=== PATIENT | female | born 1990 | race Hispanic/Latino ===

== ENCOUNTER 2023-11-13 23:27 | Emergency (ER) | payer MEDICAID ==
[~2023-11-13] VITALS: Ht 157.5 cm; Wt 88.5 kg
[2023-11-14 00:45] LABS: APPEARANCE,URINE CLEAR (CLEAR); BILIRUBIN,URINE NEGATIVE (NEGATIVE); COLOR,URINE YELLOW (YELLOW); GLUCOSE, URINE (UA) NEGATIVE (NEGATIVE); KETONES,URINE NEGATIVE (NEGATIVE); LEUKOCYTE ESTERASE ,URINE 25 Leu/uL (NEGATIVE); NITRATE,URINE NEGATIVE (NEGATIVE); OCCULT BLOOD,URINE NEGATIVE (NEGATIVE); PROTEIN,URINE 20 mg/dL (NEGATIVE); UROBILINOGEN,URINE 3 mg/dL (0.2-1.0)
[2023-11-14 00:48] LABS: ADD UA MICROSCOPIC YES
[2023-11-14 00:50] LABS: CALCIUM OXALATE CRYSTALS,UR RARE /LPF (None Seen); MUCUS,URINE MOD LPF (None Seen); SQUAMOUS EPITHELIAL CELL,UR MOD /HPF (0-2)
[2023-11-14 00:54] LABS: CREATININE 0.7 mg/dL (0.5-1.0); HCG,QUALITATIVE URINE NEGATIVE (NEGATIVE); POTASSIUM 3.1 mmol/L (3.5-5.1)
[2023-11-14 01:00] LABS: ALBUMIN 3.4 g/dL (3.5-5.0); BASOPHILS # (AUTO) 0.08 K/uL (0.00-0.20); BASOPHILS % (AUTO) 0.6 % (0.0-5.0); BILIRUBIN,TOTAL 0.4 mg/dL (0.2-1.0); EOSINOPHILS # (AUTO) 0.09 K/uL (0.00-0.70); EOSINOPHILS % (AUTO) 0.7 % (0.0-8.0); IMMATURE GRANULOCYTE ABSOLUTE 0.05 K/uL (0-1); LYMPHOCYTES # (AUTO) 3.4 K/uL (1.0-4.8); LYMPHOCYTES % (AUTO) 26.5 % (21.0-51.0); MEAN CORPUSCULAR HGB CONC 33.1 g/dL (32.0-36.0); MEAN CORPUSCULAR VOLUME 93.5 fL (79-99); MONOCYTES # (AUTO) 0.9 K/uL (0.1-1.0); MONOCYTES % (AUTO) 7.2 % (3.0-13.0); NEUTROPHILS # (AUTO) 8.4 K/uL (1.8-7.7); NEUTROPHILS % (AUTO) 64.6 % (40.0-77.0); PLATELET COUNT (AUTO) 245 K/uL (130-400); RED BLOOD CELL COUNT(AUTO) 4.49 MIL/uL (4.00-5.50); RED CELL DISTRIBUTION WIDTH 12.7 % (11.0-15.5); TOTAL PROTEIN, SERUM 6.9 g/dL (6.0-8.3)
[2023-11-14 01:25] LABS: AMPHET/METH SCREEN,URINE NEGATIVE (NEGATIVE); BARBITURATE SCREEN, URINE NEGATIVE (NEGATIVE); BENZODIAZEPINES SCREEN,URINE NEGATIVE (NEGATIVE); CANNABINOID SCREEN,URINE POSITIVE (NEGATIVE); COCAINE SCREEN,URINE NEGATIVE (NEGATIVE); OPIATE SCREEN,URINE NEGATIVE (NEGATIVE); PHENCYCLIDINE SCREEN,URINE NEGATIVE (NEGATIVE)
[2023-11-14 01:37] VITALS: BP 142/83; PULSE 80; RESP 16; O2SAT 99
[2023-11-14] MEDS ORDERED: CEPH500B PO (01:43)
== END 2023-11-14 01:48 | disposition home or self-care (01) ==
LOC: EDH 23:27
DX: N39.0 Urinary tract infection, site not specified (principal); F41.9 Anxiety disorder, unspecified; J45.909 Unspecified asthma, uncomplicated; Z88.5 Allergy status to narcotic agent; Z90.49 Acquired absence of other specified parts of digestive tract
CPT/HCPCS: 36415; 80053; 80305; 81001; 81025; 83690; 85025; 87088

== ENCOUNTER 2024-03-10 16:59 | Emergency (ER) | payer MEDICAID ==
[~2024-03-10] VITALS: Ht 157.5 cm; Wt 82.6 kg
[~2024-03-10 16:59] MED LIST: AMOX500C2 PO; CEPH500B PO
[2024-03-10 18:25] LABS: BASOPHILS # (AUTO) 0.07 K/uL (0.00-0.20); BASOPHILS % (AUTO) 0.7 % (0.0-5.0); EOSINOPHILS # (AUTO) 0.07 K/uL (0.00-0.70); EOSINOPHILS % (AUTO) 0.7 % (0.0-8.0); IMMATURE GRANULOCYTE ABSOLUTE 0.05 K/uL (0-1); LYMPHOCYTES # (AUTO) 2.8 K/uL (1.0-4.8); LYMPHOCYTES % (AUTO) 27.2 % (21.0-51.0); MEAN CORPUSCULAR HGB CONC 33.3 g/dL (32.0-36.0); MEAN CORPUSCULAR VOLUME 93.1 fL (79-99); MONOCYTES # (AUTO) 0.9 K/uL (0.1-1.0); MONOCYTES % (AUTO) 8.2 % (3.0-13.0); NEUTROPHILS # (AUTO) 6.5 K/uL (1.8-7.7); NEUTROPHILS % (AUTO) 62.7 % (40.0-77.0); PLATELET COUNT (AUTO) 252 K/uL (130-400); RED BLOOD CELL COUNT(AUTO) 4.62 MIL/uL (4.00-5.50); RED CELL DISTRIBUTION WIDTH 13.2 % (11.0-15.5); WHITE BLOOD COUNT (AUTO) 10.3 K/uL (4.8-10.8)
[2024-03-10 18:32] LABS: CREATININE 0.6 mg/dL (0.5-1.0); POTASSIUM 3.5 mmol/L (3.5-5.1)
[2024-03-10 18:39] LABS: INR 0.95 (0.85-1.15); PROTHROMBIN TIME 10.3 SEC (9.6-11.6)
[2024-03-10 18:40] LABS: PARTIAL THROMBOPLASTIN TIME 25.9 SEC (26.3-35.5)
[2024-03-10] MEDS: IpraTROPium/alBUTERol SULFATE 3 ML SOLUTION IH ONE (18:44)
[2024-03-10 18:45] VITALS: PULSE 67; RESP 18
[2024-03-10 18:46] LABS: ADD UA MICROSCOPIC YES; APPEARANCE,URINE CLOUDY (CLEAR); BILIRUBIN,URINE NEGATIVE (NEGATIVE); COLOR,URINE COLORLESS (YELLOW); GLUCOSE, URINE (UA) NEGATIVE (NEGATIVE); KETONES,URINE NEGATIVE (NEGATIVE); LEUKOCYTE ESTERASE ,URINE NEGATIVE Leu/uL (NEGATIVE); NITRATE,URINE NEGATIVE (NEGATIVE); OCCULT BLOOD,URINE NEGATIVE (NEGATIVE); PROTEIN,URINE NEGATIVE (NEGATIVE); UROBILINOGEN,URINE 0.2 mg/dL (0.2-1.0)
[2024-03-10 18:56] LABS: BACTERIA,URINE RARE /HPF (None Seen); SQUAMOUS EPITHELIAL CELL,UR FEW /HPF (0-2); WBC,URINE 0-1 /HPF (0-1)
[2024-03-10] MEDS: 0.9% NACL 500ML IV.SOLN 500 ML IV ONE (20:50)
[2024-03-10 20:56] VITALS: BP 109/65; PULSE 60; RESP 18; TEMP 98; O2SAT 98
== END 2024-03-10 20:59 | disposition home or self-care (01) ==
LOC: EDH 16:59
DX: R53.1 Weakness (principal); J44.1 Chronic obstructive pulmonary disease with (acute) exacerbation; K62.5 Hemorrhage of anus and rectum; R51.9 Headache, unspecified; H53.8 Other visual disturbances; F41.9 Anxiety disorder, unspecified; F31.9 Bipolar disorder, unspecified; F20.9 Schizophrenia, unspecified; Z88.5 Allergy status to narcotic agent; Z79.2 Long term (current) use of antibiotics; Z90.49 Acquired absence of other specified parts of digestive tract
CPT/HCPCS: 99285; 71045; 84484; 80048; 84703; 85025; 85610; 85730; 81001; 36415; 94640; J7040

== ENCOUNTER 2024-05-06 13:37 | Emergency (ER) | payer MEDICAID ==
[~2024-05-06] VITALS: Ht 157.5 cm; Wt 77.1 kg
[2024-05-06 15:39] VITALS: BP 120/70; PULSE 75; RESP 16; TEMP 98.1; O2SAT 99
[2024-05-06] MEDS: ondanSETRON ODT 4MG TAB SL ONE (15:44)
[2024-05-06 15:59] LABS: BASOPHILS # (AUTO) 0.06 K/uL (0.00-0.20); BASOPHILS % (AUTO) 0.4 % (0.0-5.0); HEMATOCRIT 45.9 % (36-48); IMMATURE GRANULOCYTE ABSOLUTE 0.06 K/uL (0-1); LYMPHOCYTES # (AUTO) 1.5 K/uL (1.0-4.8); LYMPHOCYTES % (AUTO) 11.1 % (21.0-51.0); MEAN CORPUSCULAR HEMOGLOBIN 30.3 pg (27.0-33.0); MEAN CORPUSCULAR HGB CONC 33.6 g/dL (32.0-36.0); MEAN CORPUSCULAR VOLUME 90.4 fL (79-99); MONOCYTES # (AUTO) 0.8 K/uL (0.1-1.0); MONOCYTES % (AUTO) 5.4 % (3.0-13.0); NEUTROPHILS # (AUTO) 11.5 K/uL (1.8-7.7); NEUTROPHILS % (AUTO) 82.7 % (40.0-77.0); PLATELET COUNT (AUTO) 273 K/uL (130-400); RED BLOOD CELL COUNT(AUTO) 5.08 MIL/uL (4.00-5.50); RED CELL DISTRIBUTION WIDTH 12.6 % (11.0-15.5); WHITE BLOOD COUNT (AUTO) 13.9 K/uL (4.8-10.8)
[2024-05-06 16:01] LABS: APPEARANCE,URINE CLOUDY (CLEAR); BILIRUBIN,URINE 0.5 mg/dL (NEGATIVE); COLOR,URINE YELLOW (YELLOW); GLUCOSE, URINE (UA) NEGATIVE (NEGATIVE); KETONES,URINE >=80 mg/dL (NEGATIVE); LEUKOCYTE ESTERASE ,URINE 75 Leu/uL (NEGATIVE); NITRATE,URINE NEGATIVE (NEGATIVE); OCCULT BLOOD,URINE NEGATIVE (NEGATIVE); PROTEIN,URINE 50 mg/dL (NEGATIVE); UROBILINOGEN,URINE 3 mg/dL (0.2-1.0)
[2024-05-06 16:06] LABS: HCG,QUALITATIVE URINE NEGATIVE (NEGATIVE)
[2024-05-06 16:19] LABS: CREATININE 0.7 mg/dL (0.5-1.0); POTASSIUM 3.1 mmol/L (3.5-5.1)
[2024-05-06 16:29] LABS: ADD UA MICROSCOPIC YES
[2024-05-06 16:35] LABS: MUCUS,URINE MANY LPF (None Seen); SQUAMOUS EPITHELIAL CELL,UR FEW /HPF (0-2); UNCLASSIFIED CRYSTAL 2 /HPF (None Seen)
[2024-05-06] MEDS ORDERED: ONDA-243 PO (16:40)
[2024-05-06] MEDS ORDERED: OMEP40CA21 PO (16:40)
[2024-05-06] MEDS: PoTASSium BIcarbonate/CIT AC 25 MEQ TABLET.EFF PO SCH (16:41)
== END 2024-05-06 16:52 | disposition home or self-care (01) ==
LOC: EDH 13:37
DX: E87.6 Hypokalemia (principal); R11.2 Nausea with vomiting, unspecified; F41.9 Anxiety disorder, unspecified; F20.9 Schizophrenia, unspecified; J44.9 Chronic obstructive pulmonary disease, unspecified; Z79.899 Other long term (current) drug therapy; Z88.5 Allergy status to narcotic agent; Z90.49 Acquired absence of other specified parts of digestive tract; Z98.890 Other specified postprocedural states
CPT/HCPCS: 36415; 80048; 81001; 81025; 85025; 87086

== ENCOUNTER 2024-06-11 19:31 | Emergency (ER) | payer MEDICAID ==
[~2024-06-11] VITALS: Ht 157.5 cm; Wt 75.7 kg
[~2024-06-11 19:31] MED LIST changes: +OMEP40CA21 PO; +ONDA-243 PO
--- NOTE | 2024-06-11 20:13 | HMCIMG ---
KNEE 4+VWS LT CLINICAL HISTORY: FALL COMPARISON: None TECHNIQUE: AP lateral and oblique images were obtained. FINDINGS: No obvious fracture or dislocation. No joint effusion. The soft tissues appear unremarkable. No radiopaque foreign bodies. IMPRESSION: No acute findings.
[2024-06-11] MEDS ORDERED: KETO10TA2 PO (20:29)
--- NOTE | 2024-06-11 20:29 | ERN ---
General Chief Complaint: Mechanical Fall Stated Complaint: FALL Time Seen by MD: 19:36 Time Seen by Midlevel: 19:36 Source: patient History of Present Illness Initial Comments Patient is a 34-year-old female presenting to the emergency department with left knee pain. Patient reports sustaining a mechanical ground level fall prior to arrival. She reports landing on her left knee. Patient was able to ambulate after the fall but is having pain to the area so she decided to report to the ER for further evaluation. No other injuries reported. Denies any loss of consciousness or head injury. Denies being on any blood thinners. Allergies: Coded Allergies: morphine (Unverified Allergy, Unknown, 11/13/23) Home Meds Active Scripts Ketorolac Tromethamine (Ketorolac Tromethamine) 10 Mg Tablet, 1 TAB PO TID for pain for 5 Days, #15 TAB 0 Refills Prov:DAVID ROCKWELL 06/11/24 Omeprazole (Omeprazole) 40 Mg Capsule.dr, 1 CAP PO DAILY for 30 Days, #30 CAP 0 Refills Prov:LEONID HERNDON NP 05/06/24 Ondansetron (Ondansetron Odt) 4 Mg Tab.rapdis, 1 TAB PO Q6HPRN PRN for nausea/vomiting for 4 Days, #16 TAB 0 Refills Prov:LEONID HERNDON NP 05/06/24 Amoxicillin (Amoxicillin) 500 Mg Capsule, 500 MG PO TID for 7 Days, #21 CAP Prov:REKHA ROWELL MD 12/31/23 Cephalexin Monohydrate (Keflex) 500 Mg Cap, 500 MG PO QID for 7 Days, #28 CAP Prov:REKHA ROWELL MD 11/14/23 Past Medical History Past Medical History: Anxiety, Asthma, Bipolar, COPD, Depression, Seizure, Schizophrenia Medical History Other: R FT FRACTURE Past Surgical History: Appendectomy Surgical History Other: EAR/NOSE SURGERY Female( History) History: Not Applicable ROS Dictation CONSTITUTIONAL: Negative except for HPI HEAD/FACE: Negative except for HPI EENT: Negative except for HPI RESPIRATORY: Negative except for HPI GASTROINTESTINAL/ABDOMINAL: Negative except for HPI GENITOURINARY: Negative except for HPI MUSCULOSKELETAL: Negative except for HPI INTEGUMENTARY: Negative except for HPI NEUROLOGICAL/PSYCH: Negative except for HPI HEMATOLOGIC/LYMPHATIC: Negative except for HPI All Systems Negative, Except as noted above. 13 point review of systems assessed and all negative except for above. Physical Exam Physical Exam Dictation Vital Signs reviewed General Appearance: Alert, oriented x 3, no acute distress, well developed, n ourished. Head and Face: non-traumatic. Eyes: PERRL, pink conjunctivas, eyelid no trauma, anterior chamber with arcus senilis. Ears: Pinnas intact and no signs of trauma or erythema ear canals clear and no discharge TM no erythema Nose: No discharge, no bleeding. Oropharynx: Mouth normal, tongue pink, pharynx clear,no erythema, tonsils no exudates, no abscesses noted, mucous membrane moist Neck: Supple, non-tender, no thyromegaly, no masses, no JVD, no bruits Breast:Deferred Chest:No tenderness, no crepitus, no paradoxical movement, no retractions Lungs:Clear, well-ventilated, symmetric, no rales, no wheezing, no rhonchi, no stridor, good breath sounds bilaterally Heart: Regular rate, regular rhythm, no murmur, no gallops Vascular: no peripheral edema, Abdomen: Soft, positive bowel sounds, nondistended, no guarding, nontender, no rebound, no masses no hepatomegaly, no splenomegaly, no Hutton's sign, no hernias. Rectal: Deferred Genital: Deferred Neurological: Normal speech, motor function intact, sensory function intact Musculoskeletal: Neck nontender, full range of motion, back nontender, full range of motion, Extremities: nontender, full range of motion Skin: Color pink, dry, no turgor, no rash, no lacerations, no abrasions, no contusions. Lymphatic: Deferred MDM MDM: Patient is a 34-year-old female presenting to the emergency department with left knee pain. Patient reports sustaining a mechanical ground level fall prior to arrival. She reports landing on her left knee. Patient was able to ambulate after the fall but is having pain to the area so she decided to report to the ER for further evaluation. No other injuries reported. Denies any loss of consciousness or head injury. Denies being on any blood thinners. On physical examination patient has some mild tenderness to the lateral aspect of the left knee. There is no soft tissue swelling, range of motion is intact. Distal pulses are intact. There is 2+ DP, PT pulses. There is normal capillary refill. Sensation is intact to left lower extremity. An x-ray of the left knee was obtained which did not show any acute fracture, dislocation, or joint effusion. Patient was given pain medication in the emergency department and will be discharged home with supportive management. A knee immobilizer was provided and she was advised to follow up with your primary care doctor in 2-3 days for repeat evaluation. Return precautions discussed. Patient is agreeable with this plan and all questions have been answered. Differential diagnosis: Fracture, dislocation, strain, sprain, internal knee injury There are no social concerns with this patient. Prescription drug management Prescriptions will include: Toradol Medical management and examination interpretation discussions were had by me with other qualified healthcare professionals as indicated for the patient's care. ED Course Orders Procedure Category Date Status Time Knee 4+Vws Lt RAD 06/11/24 Resulted 19:38 Ketorolac PHA 06/11/24 Complete Tromethamine 15mg/Ml 20:30 Place Knee Imobilizer CPOE 06/11/24 Transmitted To: (Er) 20:24 Current Medications Medications (Trade) Dose Ordered Sig/Macy Route PRN Reason Start Time Stop Time Status Last Admin Dose Admin Ketorolac Tromethamine (toRADol) 15 mg ONCE ONCE IM 06/11/24 20:30 06/11/24 20:31 DC 06/11/24 20:36 Vital Signs Date Time Temp Pulse Resp B/P (MAP) Pulse Ox O2 Delivery O2 Flow Rate FiO2 06/11/24 20:47 98.8 88 20 133/67 98 Room Air* 0 21 06/11/24 19:52 98.8 84 20 132/65 98 Room Air* 0 21 06/11/24 19:32 97.7 86 20 118/49 97 Room Air [place] [id number] [address] IMAGING REPORT Signed PATIENT: MARE OSUNA MR#: [id number] : 1990 SEX: F AGE: 34 LOCATION: [facility] ORDER 38 STATUS: REG ER REPORT#: [id number] SERVICE 37 REASON: FALL ORDERING PHYSICIAN: DIAMOND STREETER MD PROCEDURE: KNEE 4V LT - KNEE 4+VWS LT KNEE 4+VWS LT CLINICAL HISTORY: FALL COMPARISON: None TECHNIQUE: AP lateral and oblique images were obtained. FINDINGS: No obvious fracture or dislocation. No joint effusion. The soft tissues appear unremarkable. No radiopaque foreign bodies. IMPRESSION: No acute findings. DICTATED BY: CANDY TADEO DO DATE: 06/11/242010 ELECTRONICALLY SIGNED BY: CANDY TADEO DO DATE: 06/11/242012 DX & DISP Disposition: Discharge Departure Impression: Primary Impression: Fall Additional Impression: Left knee sprain Condition: Stable Scripts Ketorolac Tromethamine (Ketorolac Tromethamine) 10 Mg Tablet 1 TAB PO TID for pain for 5 Days, #15 TAB 0 Refills Prov: DAVID ROCKWELL 06/11/24 Referrals: MILAGROS MONTES DO (PCP) I have reviewed the case, and I agree with, Diagnosis and Plan I performed the substantive portion of the visit. I have reviewed and personally made and approve the management plan that is documented in the note by myself or the MADAI. I acknowledge for responsibility for the patient's manage ment plan. DAVID ROCKWELL Jun 11, 2024 20:29
[2024-06-11] MEDS: ketOROlac 15MG/ML VIAL (15MG/ML) IM ONE (20:36)
--- NOTE | 2024-06-11 20:42 | NUR ---
EDUCATION ON CRUTCHES PROVIDED FOR PATIENT ALONG WITH TEACHING FOR USE
[2024-06-11 20:47] VITALS: BP 133/67; PULSE 88; RESP 20; TEMP 98.8; O2SAT 98
--- NOTE | 2024-06-11 20:47 | NUR ---
KNEE IMMOBILIZER APPLIED TO LEFT KNEE PER ORDER.
== END 2024-06-11 20:48 | disposition home or self-care (01) ==
LOC: EDH 19:31
DX: S83.8X2A Sprain of other specified parts of left knee, initial encounter (principal); Z79.899 Other long term (current) drug therapy; Z88.5 Allergy status to narcotic agent; Z90.49 Acquired absence of other specified parts of digestive tract; W18.39XA Other fall on same level, initial encounter; Y93.89 Activity, other specified; Y92.89 Other specified places as the place of occurrence of the external cause; Y99.8 Other external cause status
CPT/HCPCS: 99284; 29505; 73564; 96372; J1885

== ENCOUNTER 2024-08-31 15:06 | Emergency (ER) | payer MEDICAID ==
[~2024-08-31] VITALS: Ht 157.5 cm; Wt 72.6 kg
[~2024-08-31 15:06] MED LIST changes: +KETO10TA2 PO
[2024-08-31 17:01] LABS: BASOPHILS # (AUTO) 0.07 K/uL (0.00-0.20); BASOPHILS % (AUTO) 0.4 % (0.0-5.0); HEMATOCRIT 44.9 % (36-48); LYMPHOCYTES # (AUTO) 1.2 K/uL (1.0-4.8); MEAN CORPUSCULAR HEMOGLOBIN 30.8 pg (27.0-33.0); MEAN CORPUSCULAR HGB CONC 33.6 g/dL (32.0-36.0); MEAN CORPUSCULAR VOLUME 91.6 fL (79-99); MONOCYTES # (AUTO) 0.5 K/uL (0.1-1.0); MONOCYTES % (AUTO) 2.7 % (3.0-13.0); NEUTROPHILS # (AUTO) 15.1 K/uL (1.8-7.7); NEUTROPHILS % (AUTO) 89.3 % (40.0-77.0); PLATELET COUNT (AUTO) 309 K/uL (130-400); WHITE BLOOD COUNT (AUTO) 16.9 K/uL (4.8-10.8)
[2024-08-31 17:17] LABS: CREATININE 0.7 mg/dL (0.5-1.0); POTASSIUM 3.2 mmol/L (3.5-5.1)
[2024-08-31 17:26] LABS: ALBUMIN 4.2 g/dL (3.5-5.0); BILIRUBIN,DIRECT 0.1 mg/dL (0.0-0.3); BILIRUBIN,TOTAL 0.4 mg/dL (0.2-1.0); TOTAL PROTEIN, SERUM 8.2 g/dL (6.0-8.3)
[2024-08-31 17:33] LABS: COVID19 (SARS ANTIGEN RAPID) PRESUMPTIVE NEGATIVE (NEGATIVE); INFLUENZA TYPE A Negative For Type A (NEGATIVE); INFLUENZA TYPE B Negative For Type B (NEGATIVE)
--- NOTE | 2024-08-31 18:13 | HMCIMG ---
PORTABLE CHEST RADIOGRAPH INDICATION: cough, sob COMPARISON: 03/10/2024 FINDINGS: Heart size is normal. The pulmonary vascularity and wally appear normal. No abnormal pulmonary parenchymal opacity or consolidation identified. No significant pleural effusion noted. No pneumothorax detected. IMPRESSION: No radiographic evidence for any acute cardiopulmonary process.
--- NOTE | 2024-08-31 19:28 | ERN ---
General Chief Complaint: Abdominal Pain Stated Complaint: ABD PAIN Time Seen by MD: 15:31 Time Seen by Midlevel: 15:31 Source: patient History of Present Illness Initial Comments 34-year-old female who presents to the emergency department due to abdominal pain onset four days. Patient reports back pain, vomiting, cough, difficulty breathing but denies any chest pain, diarrhea, constipation or further associated symptoms. PMHx anxiety, asthma, bipolar, COPD, depression, seizures, schizophrenia Allergies: Coded Allergies: morphine (Unverified Allergy, Unknown, 11/13/23) Home Meds Active Scripts Cephalexin (Cephalexin) 500 Mg Tablet, 500 MG PO BID for 7 Days, #14 TAB Prov:BRYCE HUERTA 08/31/24 Ketorolac Tromethamine (Ketorolac Tromethamine) 10 Mg Tablet, 1 TAB PO TID for pain for 5 Days, #15 TAB 0 Refills Prov:DAVID ROCKWELL 06/11/24 Omeprazole (Omeprazole) 40 Mg Capsule.dr, 1 CAP PO DAILY for 30 Days, #30 CAP 0 Refills Prov:LEONID HERNDON NP 05/06/24 Ondansetron (Ondansetron Odt) 4 Mg Tab.rapdis, 1 TAB PO Q6HPRN PRN for nausea/vomiting for 4 Days, #16 TAB 0 Refills Prov:LEONID HERNDON NP 05/06/24 Amoxicillin (Amoxicillin) 500 Mg Capsule, 500 MG PO TID for 7 Days, #21 CAP Prov:REKHA ROWLEL MD 12/31/23 Cephalexin Monohydrate (Keflex) 500 Mg Cap, 500 MG PO QID for 7 Days, #28 CAP Prov:REKHA ROWELL MD 11/14/23 Past Medical History Past Medical History: Anxiety, Asthma, Bipolar, COPD, Depression, Seizure, Schizophrenia Medical History Other: R FT FRACTURE Past Surgical History: Appendectomy Surgical History Other: EAR/NOSE SURGERY Female( History) History: Not Applicable ROS Dictation Constitutional: Negative for fever,chills, and weight loss Eyes: Negative for injury, pain,redness, and discharge ENT: Negative for injury,pain or swelling Cardiovascular: Negative for chest pain, palpitations, and edema Respiratory: Negative for shortness of breath, cough, and wheezing, Abdomen/GI: Positive for abdominal pain, nausea, vomiting Negative for diarrhea, and constipation Back: Positive for back pain Negative for injury and pain : Negative for painful urination, bleeding or discharge MS/Extremity: Negative for injury and deformity Skin: Negative for rash, and discoloration Neuro: Negative for headache, weakness, numbness, tingling, and seizure Psych: Negative for suicide ideation, homicidal ideation, and hallucinations Physical Exam Physical Exam Dictation General: awake, alert, no acute distress Head/Face: Normocephalic, atraumatic Eyes: PERRL, EOMI, normal conjunctiva ENT: oral cavity clear, oral mucosa moist Neck: Supple, normal range of motion Cardiovascular: RRR, normal S1/S2 Respiratory: CTAB, no respiratory distress, no rales or wheezes Abdomen: Soft, non-tender, non-distended, normal bowel sounds, no guarding or rebound. Skin: Warm, dry, normal turgor, no rash MS/Extremity: Pulses equal, no cyanosis, neurovascular intact, FROM Neuro: COAx4, GCS 15, strength 5/5, CN 2-12 intact, normal cerebellar exam, normal gait Psych: Normal behavior, mood, and affect normal Results Laboratory and Microbiology Lab and Micro Result Laboratory Tests Test 08/31/24 16:54 08/31/24 17:09 08/31/24 19:25 White Blood Count 16.9 K/uL (4.8-10.8) H Red Blood Count 4.90 MIL/uL (4.00-5.50) Hemoglobin 15.1 g/dL (12.0-16.0) Hematocrit 44.9 % (36-48) Mean Corpuscular Volume 91.6 fL (79-99) Mean Corpuscular Hemoglobin 30.8 pg (27.0-33.0) Mean Corpuscular Hemoglobin Concent 33.6 g/dL (32.0-36.0) Red Cell Distribution Width 13.0 % (11.0-15.5) Platelet Count 309 K/uL (130-400) Mean Platelet Volume 10.6 fL (7.5-10.5) H Immature Granulocyte % (Auto) 0.6 % (0-1) Neutrophils (%) (Auto) 89.3 % (40.0-77.0) H Lymphocytes (%) (Auto) 7.0 % (21.0-51.0) L Monocytes (%) (Auto) 2.7 % (3.0-13.0) L Eosinophils (%) (Auto) 0.0 % (0.0-8.0) Basophils (%) (Auto) 0.4 % (0.0-5.0) Neutrophils # (Auto) 15.1 K/uL (1.8-7.7) H Lymphocytes # (Auto) 1.2 K/uL (1.0-4.8) Monocytes # (Auto) 0.5 K/uL (0.1-1.0) Eosinophils # (Auto) 0.00 K/uL (0.00-0.70) Basophils # (Auto) 0.07 K/uL (0.00-0.20) Absolute Immature Granulocyte (auto 0.10 K/uL (0-1) Nucleated Red Blood Cells 0.0 % (0.0-0.19) White Cell Morphology Comment See comments Sodium Level 142 mmol/L (136-145) Potassium Level 3.2 mmol/L (3.5-5.1) L Chloride Level 102 mmol/L (101-111) Carbon Dioxide Level 34 mmol/L (21-32) H Blood Urea Nitrogen 7 mg/dL (7-18) Creatinine 0.7 mg/dL (0.5-1.0) Glomerular Filtration Rate Calc 115 mL/min (>90) Random Glucose 142 mg/dL (70-105) H Total Calcium 9.5 mg/dL (8.5-10.1) Total Bilirubin 0.4 mg/dL (0.2-1.0) Direct Bilirubin 0.1 mg/dL (0.0-0.3) Aspartate Amino Transf (AST/SGOT) 24 U/L (10-37) Alanine Aminotransferase (ALT/SGPT) 35 U/L (12-78) Alkaline Phosphatase 117 U/L (50-136) Total Protein 8.2 g/dL (6.0-8.3) Albumin 4.2 g/dL (3.5-5.0) Lipase 25 U/L (16-77) Influenza Type A Antigen Negative For Type A Influenza Type B Antigen Negative For Type B SARS-CoV-2 Antigen (Rapid) PRESUMPTIVE NEGATIVE Urine Color YELLOW (YELLOW) Urine Appearance TURBID (CLEAR) Urine pH 6.0 (5.0-8.0) Urine Specific [place] 1.026 (1.001-1.031) Urine Protein 100 mg/dL (NEGATIVE) H Urine Glucose (UA) 30 mg/dL (NEGATIVE) H Urine Ketones 100 mg/dL (NEGATIVE) H Urine Occult Blood NEGATIVE (NEGATIVE) Urine Nitrate NEGATIVE (NEGATIVE) Urine Bilirubin NEGATIVE mg/dL (NEGATIVE) Urine Urobilinogen 3 mg/dL (0.2-1.0) H Urine Leukocyte Esterase 75 Alexander/uL (NEGATIVE) H Urine RBC 6-10 /HPF (0-1) H Urine WBC 11-25 /HPF (0-1) H Urine Squamous Epithelial Cells RARE /HPF (0-2) Urine Other Crystals (Auto) 59 /HPF (None Seen) Urine Bacteria RARE /HPF (None Seen) Urine HCG, Qualitative NEGATIVE (NEGATIVE) Labs Reviewed?: Yes EKG/XRAY/US/CT/MRI X-RAY Comment REASON: cough, sob ORDERING PHYSICIAN: BRYCE HUERTA PROCEDURE: CXR1VW - CHEST 1VW PORTABLE CHEST RADIOGRAPH INDICATION: cough, sob COMPARISON: 03/10/2024 FINDINGS: Heart size is normal. The pulmonary vascularity and wally appear normal. No abnormal pulmonary parenchymal opacity or consolidation identified. No significant pleural effusion noted. No pneumothorax detected. IMPRESSION: No radiographic evidence for any acute cardiopulmonary process. DICTATED BY: DOMITILA BEAR MD DATE: 08/31/241810 MDM MDM: Differential diagnosis: Viral illness, abdominal pain, UTI, gastroenteritis Rationale: 34-year-old female who presents to the emergency department due to abdominal pain onset four days. Patient reports back pain, vomiting, cough, difficulty breathing but denies any chest pain, diarrhea, constipation or further associated symptoms. PMHx anxiety, asthma, bipolar, COPD, depression, seizures, schizophrenia Per physical examination patient appears to be in no acute distress, nonlabored breathing, abdomen is soft nontender, no CVA tenderness. Labs obtained indicate WBC elevated at 16.9, hypokalemia at 3.2. UA indicates a urinary tract infection. Influenza and SARs negative. Chest x-ray indicates no acute abnormalities. ED course delayed due to patient unable to provide urine. Per PECARN criteria, physical examination, and vitals no indication for D-dimer or further evaluation. Patient received Zofran, IV fluids, Reglan, K-Lyte, Rocephin, ketorolac in the ED. patient prescribed antibiotics for outpatient treatment. Educated on findings and diagnosis. Advised to follow up with PCP. Return to the emergency department if any worsening symptoms. Patient verbalized understanding. Patient stable for discharge. There are no social concerns with this patient. I independently interpreted the test that were performed, results were reviewed by me and considered findings on radiology if ordered. Medical management and examination interpretation discussions were had by me with other qualified healthcare professionals as indicated for the patient's care. ED Course Orders Procedure Category Date Status Time Cbc With Differential LAB 08/31/24 Complete 16:37 Basic Metabolic Panel LAB 08/31/24 Complete 16:37 Hepatic Function Panel LAB 08/31/24 Complete 16:37 Lipase LAB 08/31/24 Complete 16:37 Urinalysis LAB 08/31/24 Complete W/Microscopic 16:37 ,Urine Test LAB 08/31/24 Complete 16:37 Chest 1vw RAD 08/31/24 Resulted 17:01 Influenza Type A & B, LAB 08/31/24 Complete Rapid 17:01 Covid19 (Sars Antigen LAB 08/31/24 Complete Rapid) 17:01 Ondansetron 4mg Inj PHA 08/31/24 Complete (Zofran 4mg Inj) 19:30 Ketorolac PHA 08/31/24 Complete Tromethamine 15mg/Ml 19:30 Potassium Bicarb/Cit PHA 08/31/24 Complete Ac 25meq (K-Lyte Ta 19:30 Culture Urine MASOUD 08/31/24 In Process 19:40 Ceftriaxone 1g Vial PHA 08/31/24 Complete (Rocephine 1g Inj) 20:00 Metoclopramide 10 PHA 08/31/24 Complete Mg/2 Ml Vial (Reglan 1 20:00 0.9%Nacl 1000ml (Ns PHA 08/31/24 Complete 1000ml) 20:00 Current Medications Medications (Trade) Dose Ordered Sig/Macy Route PRN Reason Start Time Stop Time Status Last Admin Dose Admin Ceftriaxone Sodium (ROCEphine 1G INJ) 1 gm ONCE ONCE IVPB 08/31/24 20:00 08/31/24 20:01 DC 08/31/24 20:09 Ketorolac Tromethamine (toRADol) 15 mg ONCE ONCE IV 08/31/24 19:30 08/31/24 19:31 DC 08/31/24 19:30 Metoclopramide HCl (regLAN 10MG IV) 10 mg ONCE ONCE IVP 08/31/24 20:00 08/31/24 20:01 DC 08/31/24 20:08 Ondansetron HCl (zoFRAN 4MG INJ) 4 mg ONCE ONCE IVP 08/31/24 19:30 08/31/24 19:31 DC 08/31/24 19:29 Potassium Bicarbonate (K-Lyte Tablet Eff 25 Meq Tablet.eff) 25 meq ONCE ONCE PO 08/31/24 19:30 08/31/24 19:31 DC 08/31/24 19:29 Sodium Chloride 1,000 ml @ 0 mls/hr ONCE ONCE IV 08/31/24 20:00 08/31/24 20:01 DC 08/31/24 20:04 Vital Signs Date Time Temp Pulse Resp B/P (MAP) Pulse Ox O2 Delivery O2 Flow Rate FiO2 08/31/24 20:34 98.8 75 16 125/70 98 Room Air* 0 21 08/31/24 16:55 98.2 76 16 125/72 98 Room Air* 0 21 08/31/24 15:36 98.8 80 20 129/70 96 Room Air DX & DISP Disposition: Discharge Departure Impression: Primary Impression: UTI (urinary tract infection) Condition: Stable Scripts Cephalexin (Cephalexin) 500 Mg Tablet 500 MG PO BID for 7 Days, #14 TAB Prov: BRYCE HUERTA 08/31/24 Additional Instructions: Discharge home. Rest. Follow up with primary care DrFeliz in 24 hours. Return to the ER for any acute changes or worsening symptoms. If any medications were prescribed take as directed. Okay to continue home medications unless otherwise discussed during your visit in the emergency room today. Patient was also advised to follow-up with primary care physician in 1 to 2 days for continued monitoring. Referrals: NONE (PCP) I performed the substantive portion of the visit. I have reviewed and personally made and approve the management plan that is documented in the notes by myself or the MADAI. I acknowledge full responsibility for the patient's management plan. BRYCE HUERTA Aug 31, 2024 19:28
[2024-08-31] MEDS: PoTASSium BIcarbonate/CIT AC 25 MEQ TABLET.EFF PO ONE (19:29)
[2024-08-31] MEDS: ondanSETRON 4MG INJ IVP ONE (19:29)
[2024-08-31] MEDS: ketOROlac 15MG/ML VIAL (15MG/ML) IV ONE (19:30)
[2024-08-31 19:35] LABS: APPEARANCE,URINE TURBID (CLEAR); BILIRUBIN,URINE NEGATIVE (NEGATIVE); COLOR,URINE YELLOW (YELLOW); GLUCOSE, URINE (UA) 30 mg/dL (NEGATIVE); KETONES,URINE 100 mg/dL (NEGATIVE); LEUKOCYTE ESTERASE ,URINE 75 Leu/uL (NEGATIVE); NITRATE,URINE NEGATIVE (NEGATIVE); OCCULT BLOOD,URINE NEGATIVE (NEGATIVE); PROTEIN,URINE 100 mg/dL (NEGATIVE); UROBILINOGEN,URINE 3 mg/dL (0.2-1.0)
[2024-08-31 19:41] LABS: HCG,QUALITATIVE URINE NEGATIVE (NEGATIVE)
[2024-08-31 19:44] LABS: BACTERIA,URINE RARE /HPF (None Seen); MUCUS,URINE MANY LPF (None Seen); SQUAMOUS EPITHELIAL CELL,UR RARE /HPF (0-2); UNCLASSIFIED CRYSTAL 59 /HPF (None Seen)
[2024-08-31] MEDS: 0.9%NACL 1000ML 1,000 ML IV ONE (20:04)
[2024-08-31] MEDS: metoCLOPRAmide 10 MG/2 ML VIAL IVP ONE (20:08)
[2024-08-31] MEDS: cefTRIAXone 1G VIAL IVPB ONE (20:09)
[2024-08-31] MEDS ORDERED: CEPH500T PO (20:33)
[2024-08-31 20:34] VITALS: BP 125/70; PULSE 75; RESP 16; TEMP 98.8; O2SAT 98
== END 2024-08-31 20:43 | disposition home or self-care (01) ==
LOC: EDH 15:06
DX: N39.0 Urinary tract infection, site not specified (principal); F20.9 Schizophrenia, unspecified; F31.9 Bipolar disorder, unspecified; J44.89 Other specified chronic obstructive pulmonary disease; Z79.899 Other long term (current) drug therapy; Z88.5 Allergy status to narcotic agent; Z90.49 Acquired absence of other specified parts of digestive tract; Z20.822 Contact with and (suspected) exposure to COVID-19
CPT/HCPCS: 99284; 96365; 96375; 71045; 87426; 80076; 80048; 83690; 85025; 87086; 87804 ×2; 81001; 81025; 36415; J1885; J7030; J0696; J2405; J2765

== ENCOUNTER 2025-04-17 17:11 | Emergency (ER) | payer MEDICAID ==
[~2025-04-17] VITALS: Ht 157.5 cm; Wt 83.9 kg
[~2025-04-17 17:11] MED LIST changes: +CEPH500T PO
[2025-04-17 18:11] LABS: APPEARANCE,URINE CLEAR (CLEAR); GLUCOSE, URINE (UA) NEGATIVE (NEGATIVE); LEUKOCYTE ESTERASE ,URINE NEGATIVE Leu/uL (NEGATIVE); NITRATE,URINE NEGATIVE (NEGATIVE); OCCULT BLOOD,URINE NEGATIVE (NEGATIVE)
[2025-04-17 18:17] LABS: AMPHET/METH SCREEN,URINE NEGATIVE (NEGATIVE); BARBITURATE SCREEN, URINE NEGATIVE (NEGATIVE); CANNABINOID SCREEN,URINE POSITIVE (NEGATIVE); COCAINE SCREEN,URINE NEGATIVE (NEGATIVE)
[2025-04-17 18:31] LABS: ADD UA MICROSCOPIC NO
[2025-04-17 18:41] LABS: IMMATURE GRANULOCYTE ABSOLUTE 0.07 K/uL (0-1); NUCLEATED RED BLOOD CELLS 0.0 % (0.0-0.19); PLATELET COUNT (AUTO) 284 K/uL (130-400); RED BLOOD CELL COUNT(AUTO) 4.99 MIL/uL (4.00-5.50); RED CELL DISTRIBUTION WIDTH 12.7 % (11.0-15.5); WHITE BLOOD COUNT (AUTO) 11.7 K/uL (4.8-10.8)
[2025-04-17 18:49] LABS: CREATININE 0.5 mg/dL (0.5-1.0); GLOMERULAR FILTR. RATE CALC 125.0 mL/min (>90); GLUCOSE,RANDOM 69.0 mg/dL (70-105); SODIUM SERUM 143.0 mmol/L (136-145); UREA NITROGEN, BLOOD 9.0 mg/dL (7-18)
[2025-04-17 18:53] VITALS: BP 111/59; PULSE 67; RESP 16; TEMP 98.1; O2SAT 98
[2025-04-17] MEDS ORDERED: OFLO5DRO21 OTIC (19:22)
[2025-04-17] MEDS ORDERED: AMOX1TAB16 PO (19:22)
--- NOTE | 2025-04-17 19:22 | ERN ---
ED Note History of Present Illness Stated Complaint: ANXIETY, OUT OF MEDS Chief Complaint: Anxiety/Panic Attack Time Seen by MD: 17:13 Time Seen by Midlevel: 17:15 Dictation: 34-year-old female with a history of anxiety coming in with complaining of fe eling overwhelmed, and anxious, states she ran out of her alprazolam and has not taken anything for anxiety. Patient also complaining of right ear pain. Complaining also of lower abdominal pain. Patient states last bowel movement was today. Denies having any fever, nausea vomiting. Denies any dysuria or hematuria. Allergies: Coded Allergies: morphine (Unverified Allergy, Unknown, 11/13/23) Home Meds Active Scripts Cephalexin (Cephalexin) 500 Mg Tablet, 500 MG PO BID for 7 Days, #14 TAB Prov:BRYCE HUERTA PAC 08/31/24 Ketorolac Tromethamine (Ketorolac Tromethamine) 10 Mg Tablet, 1 TAB PO TID for pain for 5 Days, #15 TAB 0 Refills Prov:DAVID ROCKWELL PAC 06/11/24 Omeprazole (Omeprazole) 40 Mg Capsule.dr, 1 CAP PO DAILY for 30 Days, #30 CAP 0 Refills Prov:LEONID HERNDON OCULAR CARE TECHNICIAN 05/06/24 Ondansetron (Ondansetron Odt) 4 Mg Tab.rapdis, 1 TAB PO Q6HPRN PRN for nausea/vomiting for 4 Days, #16 TAB 0 Refills Prov:LEONID HERNDON OCULAR CARE TECHNICIAN 05/06/24 Amoxicillin (Amoxicillin) 500 Mg Capsule, 500 MG PO TID for 7 Days, #21 CAP Prov:REKHA ROWELL MD 12/31/23 Cephalexin Monohydrate (Keflex) 500 Mg Cap, 500 MG PO QID for 7 Days, #28 CAP Prov:REKHA ROWELL MD 11/14/23 Past Medical History Past Medical History: Anxiety, Asthma, Bipolar, COPD, Depression, Seizure, Schizophrenia Additional Past Medical Hx: R FT FRACTURE Surgical History: Appendectomy Surgical History Other: EAR/NOSE SURGERY History: Not Applicable LMP: May 20, 2017 Review of System Dictation Constitutional: Negative for fever,chills, and weight loss Eyes: Negative for injury, pain,redness, and discharge ENT: Negative for injury,pain or swelling Cardiovascular: Negative for chest pain, palpitations, and edema Respiratory: Negative for shortness of breath, cough, and wheezing, Abdomen/GI: Positive for abdominal pain, no nausea, no vomiting, no diarrhea, and no constipation Back: Negative for injury and pain : Negative for injury, bleeding and discharge MS/Extremity: Negative for injury and deformity Skin: Negative for rash, and discoloration Neuro: Negative for headache, weakness, numbness, tingling, and seizure Psych: Negative for suicide ideation, homicidal ideation, and hallucinations Review of Systems: was completed Initial Vital Sign VS Vital Signs Date Time Temp Pulse Resp B/P (MAP) Pulse Ox O2 Delivery O2 Flow Rate FiO2 04/17/25 17:12 98.1 67 16 111/59 98 04/17/25 17:49 Room Air* 0 21 Physical Exam Dictation General: awake, alert, NAD Head/Face: Normocephalic, atraumatic Eyes: PERRL, EOMI, vision at baseline ENT: oral cavity clear, left TM is clear no signs of infection, right TM has a is erythemic along with the ear canal consistent with otitis media and otitis externa Neck: Trachea midline, supple, no nuchal rigidity Cardiovascular: RRR, normal S1/S2, No MRGs, no JVD Respiratory: CTAB, no respiratory distress, No rales or wheezes Abdomen: Soft, non-tender, non-distended, normal bowel sounds, no guarding or rebound. Skin: Warm, dry, normal turgor, no rash MS/Extremity: Pulses equal, no cyanosis, neurovascular intact, FROM Neuro: COAx4, GCS 15, strength 5/5, CN 2-12 intact, normal cerebellar exam, normal gait, Psych: Normal behavior, mood, and affect normal Results (Laboratory/Radiology) Laboratory/Radiology Laboratory Tests Test 04/17/25 17:52 04/17/25 18:26 Urine Color COLORLESS (YELLOW) Urine Appearance CLEAR (CLEAR) Urine pH 6.0 (5.0-8.0) Urine Specific [place] 1.001 (1.001-1.031) Urine Protein NEGATIVE mg/dL (NEGATIVE) Urine Glucose (UA) NEGATIVE mg/dL (NEGATIVE) Urine Ketones NEGATIVE mg/dL (NEGATIVE) Urine Occult Blood NEGATIVE (NEGATIVE) Urine Nitrate NEGATIVE (NEGATIVE) Urine Bilirubin NEGATIVE mg/dL (NEGATIVE) Urine Urobilinogen 0.2 mg/dL (0.2-1.0) Urine Leukocyte Esterase NEGATIVE Alexander/uL Urine Opiates Screen NEGATIVE (NEGATIVE) Urine Barbiturates Screen NEGATIVE (NEGATIVE) Urine Phencyclidine Screen NEGATIVE (NEGATIVE) Urine Amphetamines Screen NEGATIVE (NEGATIVE) Urine Benzodiazepines Screen NEGATIVE (NEGATIVE) Urine Cocaine Screen NEGATIVE (NEGATIVE) Urine Marijuana (THC) Screen POSITIVE (NEGATIVE) H White Blood Count 11.7 K/uL (4.8-10.8) H Red Blood Count 4.99 MIL/uL (4.00-5.50) Hemoglobin 15.4 g/dL (12.0-16.0) Hematocrit 46.4 % (36-48) Mean Corpuscular Volume 93.0 fL (79-99) Mean Corpuscular Hemoglobin 30.9 pg (27.0-33.0) Mean Corpuscular Hemoglobin Concent 33.2 g/dL (32.0-36.0) Red Cell Distribution Width 12.7 % (11.0-15.5) Platelet Count 284 K/uL (130-400) Mean Platelet Volume 10.4 fL (7.5-10.5) Immature Granulocyte % (Auto) 0.6 % (0-1) Neutrophils (%) (Auto) 67.8 % (40.0-77.0) Lymphocytes (%) (Auto) 23.4 % (21.0-51.0) Monocytes (%) (Auto) 7.0 % (3.0-13.0) Eosinophils (%) (Auto) 0.5 % (0.0-8.0) Basophils (%) (Auto) 0.7 % (0.0-5.0) Neutrophils # (Auto) 8.0 K/uL (1.8-7.7) H Lymphocytes # (Auto) 2.8 K/uL (1.0-4.8) Monocytes # (Auto) 0.8 K/uL (0.1-1.0) Eosinophils # (Auto) 0.06 K/uL (0.00-0.70) Basophils # (Auto) 0.08 K/uL (0.00-0.20) Absolute Immature Granulocyte (auto 0.07 K/uL (0-1) Nucleated Red Blood Cells 0.0 % (0.0-0.19) Sodium Level 143 mmol/L (136-145) Potassium Level 4.0 mmol/L (3.5-5.1) Chloride Level 104 mmol/L (101-111) Carbon Dioxide Level 31 mmol/L (21-32) Blood Urea Nitrogen 9 mg/dL (7-18) Creatinine 0.5 mg/dL (0.5-1.0) Glomerular Filtration Rate Calc 125 mL/min (>90) Random Glucose 69 mg/dL (70-105) L Total Calcium 9.1 mg/dL (8.5-10.1) Labs Reviewed?: Yes ED Course ED Course Orders Procedure Category Date Status Time Cbc With Differential LAB 04/17/25 Complete 17:55 Basic Metabolic Panel LAB 04/17/25 Complete 17:55 Urinalysis Profile LAB 04/17/25 Complete 17:55 Drug Screen Urine LAB 04/17/25 Complete 17:55 Vital Signs Date Time Temp Pulse Resp B/P (MAP) Pulse Ox O2 Delivery O2 Flow Rate FiO2 04/17/25 18:53 98.1 67 16 111/59 98 Room Air* 0 21 04/17/25 17:49 98.1 67 16 111/59 98 Room Air* 0 21 04/17/25 17:12 98.1 67 16 111/59 98 Medical Decision Making MDM MDM: 34-year-old female with a history of anxiety coming in with complaining of feeling overwhelmed, and anxious, states she ran out of her alprazolam and has not taken anything for anxiety. Patient also complaining of right ear pain. Complaining also of lower abdominal pain. Patient states last bowel movement was today. Denies having any fever, nausea vomiting. Denies any dysuria or hematuria. We will unremarkable. No evidence of urinary tract infection. 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 Patient will be discharged for both p.o. antibiotics and ear drops for her otitis media and otitis externa. Differential diagnosis: Anxiety, UTI, otitis externa Rationale: Tests considered and ordered secondary to shared decision making include: Previous outside records reviewed: Old ER visits. Risk of complication and/or morbidity or mortality of patient management: None Medications-Per medication reconciliation Need for hospitalization: Patient does not meet criteria for hospitalization. Need for emergency major/minor surgery: No There are no social concerns with this patient. Prescription drug management Prescriptions will include symptomatic care Patient's prior external medical records from other ER visits were reviewed by me as indicated. Prior testing and results from previous visits were reviewed. Prior tests were taken into account with medical decision making and resource utilization, independent historian/historians were used to obtain complete medical history. I independently interpreted the test that were performed, results were reviewed by me and considered findings on radiology if ordered. Medical management and examination interpretation discussions were had by me with other qualified healthcare professionals as indicated for the patient's care. DX & DISP Disposition: Discharge Departure Impression: Primary Impression: Anxiety Additional Impressions: Otitis media, Otitis externa Condition: Stable Scripts Ofloxacin (Ofloxacin) 0.3 % Drops 5 DROP OTIC BID for 5 Days, #5 ML 0 Refills Prov: PANTERA JAMES OCULAR CARE TECHNICIAN 04/17/25 Amoxicillin/Potassium Clav (Amox Tr-K Clv 875-125 mg Tab) 875 Mg-125 Mg Tablet 1 TAB PO BID for 10 Days, #20 TAB 0 Refills Prov: PANTERA JAMES OCULAR CARE TECHNICIAN 04/17/25 Additional Instructions: Follow up with your primary care provider in 1-2 days. Return to the hospital as needed. Referrals: SELF,REFERRAL (PCP) Time of Disposition: 19:22 I have reviewed the case, and I agree with, Diagnosis and Plan PANTERA JAMES Apr 17, 2025 19:22
== END 2025-04-17 19:44 | disposition home or self-care (01) ==
LOC: EDH 17:11
DX: F41.9 Anxiety disorder, unspecified (principal); H66.91 Otitis media, unspecified, right ear; H60.91 Unspecified otitis externa, right ear; J44.9 Chronic obstructive pulmonary disease, unspecified; F20.9 Schizophrenia, unspecified; F31.9 Bipolar disorder, unspecified; Z79.899 Other long term (current) drug therapy; Z88.5 Allergy status to narcotic agent; Z90.49 Acquired absence of other specified parts of digestive tract
CPT/HCPCS: 36415; 80048; 80305; 81003; 85025; 99283

== ENCOUNTER 2025-05-20 10:39 | Emergency (ER) | payer MEDICAID ==
[~2025-05-20] VITALS: Ht 157.5 cm; Wt 83.9 kg
[~2025-05-20 10:39] MED LIST changes: +AMOX1TAB16 PO; +OFLO5DRO21 OTIC
--- NOTE | 2025-05-20 10:46 | NUR ---
REMOVED ALLERGY TO MORPHINE, PT DENIES HAVING ALLERGIC REACTION TO MORPHINE, PT NOTIFIED LEONID NOBLE
--- NOTE | 2025-05-20 10:48 | ERN ---
ED Note History of Present Illness Stated Complaint: LEFT FOOT PAIN Chief Complaint: FOOT INJURY/PAIN Time Seen by MD: 10:40 Dictation: PATIENT IS A 35-YEAR-OLD FEMALE COMING IN TODAY WITH LEFT LATERAL ANKLE PAIN SWELLING ONSET 1 HOUR PRIOR TO ARRIVAL. SHE STATES SHE WAS WALKING WHEN SHE HAD A MISSTEPPED AND TWISTED HER ANKLE. SHE STATES SHE DID NOT FALL, NOTHING HAS BEEN TAKEN PRIOR TO ARRIVAL FOR PAIN. DISTAL NEUROVASCULAR CMS INTACT TO LEFT FOOT. Allergies: Coded Allergies: No Known Drug Allergies (Unverified Allergy, Unknown, 05/20/25) Home Meds Active Scripts Ofloxacin (Ofloxacin) 0.3 % Drops, 5 DROP OTIC BID for 5 Days, #5 ML 0 Refills Prov:PANTERA JAMES BAKERY TEAM MEMBER 04/17/25 Amoxicillin/Potassium Clav (Amox Tr-K Clv 875-125 mg Tab) 875 Mg-125 Mg Tablet, 1 TAB PO BID for 10 Days, #20 TAB 0 Refills Prov:PANTERA JAMES BAKERY TEAM MEMBER 04/17/25 Cephalexin (Cephalexin) 500 Mg Tablet, 500 MG PO BID for 7 Days, #14 TAB Prov:BRYCE HUERTA PAC 08/31/24 Ketorolac Tromethamine (Ketorolac Tromethamine) 10 Mg Tablet, 1 TAB PO TID for pain for 5 Days, #15 TAB 0 Refills Prov:DAVID ROCKWELL PAC 06/11/24 Omeprazole (Omeprazole) 40 Mg Capsule.dr, 1 CAP PO DAILY for 30 Days, #30 CAP 0 Refills Prov:LEONID HERNDON FOREIGN LANGUAGE INSTRUCTOR 05/06/24 Ondansetron (Ondansetron Odt) 4 Mg Tab.rapdis, 1 TAB PO Q6HPRN PRN for nausea/vomiting for 4 Days, #16 TAB 0 Refills Prov:LEONID HERNDON FOREIGN LANGUAGE INSTRUCTOR 05/06/24 Amoxicillin (Amoxicillin) 500 Mg Capsule, 500 MG PO TID for 7 Days, #21 CAP Prov:REKHA ROWELL MD 12/31/23 Cephalexin Monohydrate (Keflex) 500 Mg Cap, 500 MG PO QID for 7 Days, #28 CAP Prov:REKHA ROWELL MD 11/14/23 Past Medical History Past Medical History: Anxiety, Asthma, Bipolar, COPD, Depression, Seizure, Schizophrenia Additional Past Medical Hx: R FT FRACTURE Surgical History: Appendectomy Surgical History Other: EAR/NOSE SURGERY History: Not Applicable RN Note Reviewed/Agreed w/PFSH: Yes Review of System Dictation CONSTITUTIONAL: NEGATIVE EXCEPT FOR HPI HEAD/FACE: NEGATIVE EXCEPT FOR HPI EENT: NEGATIVE EXCEPT FOR HPI RESPIRATORY: NEGATIVE EXCEPT FOR HPI GASTROINTESTINAL/ABDOMINAL: NEGATIVE EXCEPT FOR HPI GENITOURINARY: NEGATIVE EXCEPT FOR HPI MUSCULOSKELETAL: NEGATIVE EXCEPT FOR HPI LEFT LATERAL ANKLE PAIN SWELLING INTEGUMENTARY: NEGATIVE EXCEPT FOR HPI NEUROLOGICAL/PSYCH: NEGATIVE EXCEPT FOR HPI HEMATOLOGIC/LYMPHATIC: NEGATIVE EXCEPT FOR HPI ALL SYSTEMS NEGATIVE, EXCEPT NOTED ABOVE. 13 POINT REVIEW OF SYSTEMS ASSESSED AND ALL NEGATIVE EXCEPT FOR ABOVE. Initial Vital Sign VS Vital Signs Date Time Temp Pulse Resp B/P (MAP) Pulse Ox O2 Delivery O2 Flow Rate FiO2 05/20/25 10:40 98.1 87 16 121/77 98 Room Air Physical Exam Dictation VITAL SIGNS REVIEWED GENERAL APPEARANCE: ALERT, ORIENTED X 3, MODERATE ACUTE DISTRESS, WELL DEVELOP ED, NOURISHED. HEAD AND FACE: NON-TRAUMATIC. EYES: PERRL, PINK CONJUNCTIVAS, EYELID NO TRAUMA, ANTERIOR CHAMBER WITH ARCUS SENILIS. EARS: PINNAS INTACT AND NO SIGNS OF TRAUMA OR ERYTHEMA EAR CANALS CLEAR AND NO DISCHARGE TM NO ERYTHEMA NOSE: NO DISCHARGE, NO BLEEDING. OROPHARYNX: MOUTH NORMAL, TONGUE PINK, PHARYNX CLEAR,NO ERYTHEMA, TONSILS NO EXUDATES, NO ABSCESSES NOTED, MUCOUS MEMBRANE MOIST NECK: SUPPLE, NON-TENDER, NO THYROMEGALY, NO MASSES, NO JVD, NO BRUITS BREAST:DEFERRED CHEST:NO TENDERNESS, NO CREPITUS, NO PARADOXICAL MOVEMENT, NO RETRACTIONS LUNGS:CLEAR, WELL-VENTILATED, SYMMETRIC, NO RALES, NO WHEEZING, NO RHONCHI, NO STRIDOR, GOOD BREATH SOUNDS BILATERALLY HEART: REGULAR RATE, REGULAR RHYTHM, NO MURMUR, NO GALLOPS VASCULAR: NO PERIPHERAL EDEMA, ABDOMEN: SOFT, POSITIVE BOWEL SOUNDS, NONDISTENDED, NO GUARDING, NONTENDER, NO REBOUND, NO MASSES NO HEPATOMEGALY, NO SPLENOMEGALY, NO SUE'S SIGN, NO HERNIAS. RECTAL: DEFERRED GENITAL: DEFERRED NEUROLOGICAL: NORMAL SPEECH, MOTOR FUNCTION INTACT, SENSORY FUNCTION INTACT MUSCULOSKELETAL: NECK NONTENDER, FULL RANGE OF MOTION, BACK NONTENDER, FULL RANGE OF MOTION, EXTREMITIES: LEFT LATERAL MALLEOLAR TENDERNESS SWELLING. SKIN IS INTACT. DECREASED RANGE OF MOTION SECONDARY TO PAIN. SKIN: COLOR PINK, DRY, NO TURGOR, NO RASH, NO LACERATIONS, NO ABRASIONS, NO CONTUSIONS. LYMPHATIC: DEFERRED Results (Laboratory/Radiology) Laboratory/Radiology 1130/distal left fibular fracture nondisplaced Labs Reviewed?: Yes ED Course ED Course Orders Procedure Category Date Status Time Ankle Comp 3vws Lt RAD 05/20/25 Taken 10:43 Apply Ice Pack To: CPOE 05/20/25 Transmitted (Er) 10:43 Posterior Ankle Splint NINA.ER 05/20/25 In Process 10:43 Crutches W/Training CPOE 05/20/25 Transmitted (Er) 10:43 Hydrocodone/Apap PHA 05/20/25 Complete 5/325 ([place] 5/325mg) 11:00 Current Medications Medications (Trade) Dose Ordered Sig/Macy Route PRN Reason Start Time Stop Time Status Last Admin Dose Admin Acetaminophen/ Hydrocodone Bitart (NORco 5/325MG) 1 tab ONCE ONCE PO 05/20/25 11:00 05/20/25 11:01 DC 05/20/25 11:19 Vital Signs Date Time Temp Pulse Resp B/P (MAP) Pulse Ox O2 Delivery O2 Flow Rate FiO2 05/20/25 10:40 98.1 87 16 121/77 98 Room Air 1130/patient aware of findings on x-ray. Posterior short-leg splint placed by tech to right leg Ankle Neurovascular CMS intact post placement Medical Decision Making MDM Medical decision-making based on empiric treatment for ankle pain and x-ray. Patient has nondisplaced left fibular fracture Posterior splint was placed with crutches provided Patient given no weight-bearing instructions with Tylenol with codeine for severe pain Follow up with Dr. Martin Fang next Thursday for an appointment [place] instructions given DX & DISP Disposition: Discharge Departure Impression: Primary Impression: Closed fracture of left distal fibula Condition: Stable Scripts Acetaminophen with Codeine (Acetaminophen-Cod #3 Tablet) 300 Mg-30 Mg Tablet 1 TAB PO Q4H PRN for Moderate to severe pain, #12 TAB 0 Refills Prov: LEONID HERNDON FOREIGN LANGUAGE INSTRUCTOR 05/20/25 Additional Instructions: Follow-up with primary care provider in 1 to 2 days. Take medications as directed here in the emergency room. Okay to continue home medications unless otherwise discussed during your visit in the emergency room today. Return to your nearest emergency room if symptoms worsen or if there is no improvement. Call 911 if you need immediate assistance. Take Tylenol or Motrin [id number] as needed and if no contraindications are present. Increase oral hydration. A wound culture or urine culture was ordered here in the emergency room department please follow-up with primary care provider and advise them to get repeat ports from our facility. If you had any Harjit wrap/splints that were applied here, please do not remove them until you see your primary care or specialty. Splint/crutches/no weight-bearing until cleared by orthopedic surgeon, call for an appointment on Thursday. Keep left leg elevated as much as possible and apply cool compresses to pain three to 4 times a day. Referrals: LEEANN STREETER MD (PCP) MARTIN FANG DO Time of Disposition: 11:30 I have reviewed the case, and I agree with, Diagnosis and Plan LEONID HERNDON [facility] May 20, 2025 10:48
[2025-05-20] MEDS: HYDROcodone/APAP 5/325 1 TAB TABLET PO ONE (11:19)
--- NOTE | 2025-05-20 11:21 | NUR ---
ICE PACK APPLIED TO LEFT FOOT, LEFT ANKLE SPLINT APPLIED, TOLERATED WELL, CRUTCH WALKING EDUCATION DONE, DEMONSTRATED WELL.
[2025-05-20 11:29] VITALS: BP 102/56; PULSE 82; RESP 16; TEMP 98.2; O2SAT 98
[2025-05-20] MEDS ORDERED: ACET-2079 PO (11:31)
--- NOTE | 2025-05-20 12:25 | HMCIMG ---
EXAM: CR left ankle, 3 View. CLINICAL HISTORY: LATERAL MALLEOLAR PAIN SWELLING AFTER TWISTING ANKLE COMPARISON: None provided. FINDINGS: Cast material limits evaluation of the osseous detail. Mildly displaced fracture of the distal tip of the fibula. Lateral ankle soft tissue edema. Joint spaces remain anatomically aligned. IMPRESSION: 1. Mildly displaced fracture of the distal tip of the fibula with associated lateral ankle soft tissue edema. 2. Joint spaces remain anatomically aligned. /[place]
== END 2025-05-20 11:38 | disposition home or self-care (01) ==
LOC: EDH 10:39
DX: S82.832A Other fracture of upper and lower end of left fibula, initial encounter for closed fracture (principal); F31.9 Bipolar disorder, unspecified; J44.89 Other specified chronic obstructive pulmonary disease; F20.9 Schizophrenia, unspecified; F41.9 Anxiety disorder, unspecified; Z79.899 Other long term (current) drug therapy; Z90.49 Acquired absence of other specified parts of digestive tract; X50.1XXA Overexertion from prolonged static or awkward postures, initial encounter; Y93.01 Activity, walking, marching and hiking; Y92.89 Other specified places as the place of occurrence of the external cause; Y99.8 Other external cause status
CPT/HCPCS: 29515; 73610; 99283